=== PATIENT | male | born 1995 | race Caucasian/White ===

== ENCOUNTER 2017-12-29 00:38 | Emergency (ER) | payer OTHER ==
[~2017-12-29] VITALS: Ht 172.7 cm; Wt 100.0 kg
[2017-12-29] MEDS ORDERED: NORCO 325 MG-51 TA1 PO (02:02)
[2017-12-29 02:14] VITALS: BP 143/82
== END 2017-12-29 02:14 | disposition home or self-care (01) ==
LOC: ED 00:38
DX: S62.232A Other displaced fracture of base of first metacarpal bone, left hand, initial encounter for closed fracture (principal); S50.812A Abrasion of left forearm, initial encounter; S60.943A Unspecified superficial injury of left middle finger, initial encounter; W23.0XXA Caught, crushed, jammed, or pinched between moving objects, initial encounter; Y92.69 Other specified industrial and construction area as the place of occurrence of the external cause
CPT/HCPCS: J1885